=== PATIENT | male | born 1980 | race Caucasian/White ===

== ENCOUNTER 2020-03-28 05:32 | Emergency (ER) | payer OTHER, SELFPAY ==
--- NOTE | ~2020-03-28 | CT_ITS ---
EXAMINATION: CT abdomen pelvis wo con DATE: 03/28/2020 07:01 INDICATION: Right flank pain. History of nephrolithiasis. TECHNIQUE: Computed tomography (CT) of the abdomen and pelvis was performed without intravenous contr ast. Automated exposure control and iterative reconstruction technique were employed. Exam dose: 144 4.22 mGy-cm total exam DLP. COMPARISON: None. FINDINGS: The lung bases are clear of infiltrate or consolidation. Normal heart size. No pericardial or pleural effusion. The liver, gallbladder, bile ducts, spleen, pancreas and pancreatic duct are unremarkable. Normal morphology of the adrenal glands. There are multiple bilateral nonobstructing kidney stones. There is approximately 4.5 cm lower pole l eft renal cyst. There is approximately 3.8 x 4.2 mm right ureterovesical junction calculus with associated mild right hydroureteronephrosis. No left ureteral calculus or hydroureteronephrosis. The urinary bladder and prostate gland are unremarkable. Normal caliber of the abdominal aorta. No intraperitoneal or retroperitoneal or pelvic mass lesion or adenopathy or ascites. Normal appendix. Mild colonic diverticulosis. No bowel obstruction, bowel wall thickening, pneumatosi s or intraperitoneal free air. Included skeletal structures are unremarkable. IMPRESSION: 3.8 x 4.2 mm right ureterovesical junction calculus with mild right hydroureteronephrosi s Bilateral nephrolithiasis 4.5 cm lower pole right renal cyst Minimal colonic diverticulosis; no CT evidence of diverticulitis Reviewed, dictated and finalized at [facility]. Reviewed, dictated and finalized at [facility]. IMPRESSION: 3.8 x 4.2 mm right ureterovesical junction calculus with mild righ t hydroureteronephrosis Bilateral nephrolithiasis 4.5 cm lower pole right renal cyst Minimal colonic diverticulosis; no CT evidence of diverticulitis
[2020-03-28 05:34] VITALS: BP 152/98; PULSE 73; RESP 14; TEMP 36.2; O2SAT 100
--- NOTE | 2020-03-28 05:44 | ED.MALEGU ---
HPI - Male Genitourinary General Chief complaint: Urogenital-Male Stated complaint: kidney stone Time Seen by Provider: 03/28/20 05:44 Source: patient Mode of arrival: ambulatory Limitations: no limitations History of Present Illness HPI Narrative: Patient is a 40-year-old male with a history of nephrolithiasis who presents for evaluation of right flank pain. Patient states he has had right flank pain over the past 5 days, has increased in nature and severity, become more constant. Patient reports radiation of the pain into the right lower abdomen. No associated fever, nausea or vomiting. He has had some associated hematuria and difficulty with urination. He denies any dysuria. Patient states his last kidney stone was over 2 years ago, he was able to pass this on his own, not currently following with any urologist. Related Data Allergies Allergy/AdvReac Type Severity Reaction Status Date / Time No Known Allergies Allergy Verified 03/28/20 05:37 Review of Systems Review of Systems: Narrative: CONSTITUTIONAL: Denies fever, chills ENT: Denies rhinorrhea, congestion CARDIOVASCULAR: Denies chest pain RESPIRATORY: Denies cough or dyspnea. GASTROINTESTINAL: Reports right lower quadrant abdominal pain, denies nausea or vomiting GENITOURINARY: Denies dysuria reports hematuria and hesitancy SKIN: Denies rash or itching. MUSCULOSKELETAL: Reports right flank pain NEUROLOGIC: Denies headache, numbness, or weakness. [facility] Past Medical History Medical History (Updated 03/28/20 @ 08:11 by Katerina Hernandez MD) Nephrolithiasis Social History Social History (Updated 03/28/20 @ 05:53 by Katerina Hernandez MD) Smoking status: Never smoker Alcohol intake: never Substance use: never Living arrangements: with family Gender identity (if verbalized by the patient): Male Exam Narrative: Exam Narrative: GENERAL: Awake, alert, conversant HEAD: Normocephalic, atraumatic. EYES: PERRLA and EOMI. ENT: Nares clear, no rhinorrhea or epistaxis. Mucous membranes moist. NECK: Supple. CHEST: No respiratory distress, breathing even and non labored HEART: Regular rate, sinus rhythm ABDOMEN:Non distended, mild right lower quadrant tenderness without guarding, rigidity, no rebound EXTREMITIES: Normal range of motion. No edema. SKIN: Warm, dry, no rash. NEURO:No focal deficits. Alert and oriented x3 Course Vital Signs Vital signs: Vital Signs Temperature 36.2 C L 03/28/20 05:34 Pulse Rate 73 03/28/20 05:34 Respiratory Rate 14 03/28/20 05:34 Blood Pressure 152/98 H 03/28/20 05:34 Pulse Oximetry 100 03/28/20 05:34 Temperature 36.2 C L 03/28/20 05:34 Pulse Rate 87 03/28/20 07:45 Respiratory Rate 14 03/28/20 05:34 Blood Pressure 132/91 H 03/28/20 07:38 Pulse Oximetry 97 03/28/20 07:45 MDM - Male Genitourinary MDM Narrative Medical decision making narrative: Patient presented for evaluation of right-sided flank pain that radiates into the right lower abdomen with a history of nephrolithiasis. Symptoms do seem consistent with renal colic. IV access obtained and labs are drawn. Patient was given IV fluids, antiemetic and pain medication. Laboratory results show no leukocytosis, no acute kidney injury. Patient with hematuria without urinary tract infection. CT scan confirms right-sided ureteral stone with mild hydronephrosis. Patient feeling improved at the time of reassessment. Tolerating oral intake, pain is much improved. Shared decision-making occurred between myself and patient, patient would like to trial outpatient management with pain medication and outpatient urology follow-up. Patient then discharged home with family in stable condition. Differential Diagnosis Differential diagnosis: Likely urinary tract infection and other (Renal colic, UTI) Lab Data Attestation: I reviewed the patient's lab results. Result diagrams: 03/28/20 06:11 03/28/20 06:53 Labs: Lab Re
[2020-03-28] MEDS: SODIUM CHLORIDE 0.9% IV 1,000 ML 999 ML IV CONT (06:10)
[2020-03-28] MEDS: ONDANSETRON INJ 4 MG/2 ML VIAL IV PUSH (06:10)
[2020-03-28] MEDS: MORPHINE SULFATE (*CRX) 4 MG/ML INJ IV PUSH (06:12)
[2020-03-28 06:36] LABS: Basophils Absolute Auto 0.1 K/mm3 (0.0-0.1); Basophils Percent Auto 1.1 % (0.2-1.2); Eosinophils Absolute Auto 0.1 K/mm3 (0-0.3); Eosinophils Percent Auto 1.8 % (0-4.4); Hematocrit 47.2 % (42.0-52.0); Hemoglobin 15.6 g/dL (14.0-18.0); Immature Granulocyte Absolute 0.02 K/mm3 (0.00-0.031); Immature Granulocyte Percent A 0.3 % (0-0.5); Lymphocytes Absolute Auto 1.84 K/mm3 (0.9-3.2); Lymphocytes Percent Auto 23.3 % (18.3-44.2); Mean Corpuscular HGB Conc 33.1 g/dl (32-36); Mean Corpuscular Hemoglobin 29.9 pg (26-34); Mean Corpuscular Volume 90.4 fl (80-100); Monocytes Absolute Auto 0.7 K/mm3 (0.1-0.6); Monocytes Percent Auto 8.2 % (2.6-8.5); Neutrophils Absolute Auto 5.2 K/mm3 (1.3-6.7); Neutrophils Percent Auto 65.3 % (45.5-73.1); Platelet Count Result 270 k/mm3 (150-375); Red Blood Count 5.22 M/mm3 (4.6-6.20); Red Cell Distribution Width 12.2 % (11.5-14.5); White Blood Count 7.9 K/mm3 (4.5-10.0)
[2020-03-28 07:15] LABS: Alanine Aminotransferase 23 U/L (4-50); Albumin Level 4.3 g/dL (3.5-5.1); Alkaline Phosphatase 64 U/L (38-126); Anion Gap 8 mmol/L (8-16); Aspartate Amino Transferase 35 U/L (17-59); Bilirubin,Total 0.4 mg/dL (0.2-1.3); Blood Urea Nitrogen 16 mg/dL (9-20); Calcium 9.1 mg/dL (8.4-10.2); Carbon Dioxide 28 mmol/L (22-30); Chloride 105 mmol/L (98-107); Estimated CRCL calculation 118 ml/min; Estimated Glomerular Filt Rate > 60; Glucose 112 mg/dL (75-110); Lipase 98 U/L (23-300); Potassium 4.6 mmol/L (3.4-5.0); Sodium 141 mmol/L (137-145)
[2020-03-28] MEDS: HYDROmorphone HCL INJ (*CRX) 1 MG/ML SYR 0.5 MG IV PUSH (07:35)
[2020-03-28 07:38] VITALS: BP 132/91; PULSE 74; O2SAT 96
[2020-03-28 07:41] VITALS: O2SAT 97
[2020-03-28 07:41] LABS: Add Urine Microscopic? YES; Appearance Urine Clear (Clear); Bilirubin Urine Negative (Negative); Blood Urine 3+ (Negative); Color Urine Straw (Yellow); Glucose Urine UA Negative (Negative); Ketones Urine Negative (Negative); Leukocyte Esterase Ur Negative LEU/UL (Negative); Mucus Urine Few /lpf; Nitrate Urine Negative (Negative); Protein Urine Negative (Negative); RBC Urine >75 /hpf (0-2); Specific Grav Ur 1.014 (1.001-1.035); Urobilinogen Urine Negative mg/dL (<2.0); WBC Urine 0-3 /hpf
[2020-03-28 07:45] VITALS: PULSE 87; O2SAT 97
[2020-03-28 08:37] VITALS: BP 134/89; PULSE 83; RESP 16; O2SAT 97
== END 2020-03-28 08:38 | disposition home or self-care (01) ==
PROVIDERS: Emergency Provider Emergency Medicine
DX: N20.0 Calculus of kidney (principal); Z87.442 Personal history of urinary calculi
CPT/HCPCS: 36415; 74176; 80053; 81001; 83690; 85025; 96361; 96374; 96375; 99284; J0131; J1170; J2270; J2405; J7030

== ENCOUNTER 2020-05-01 15:46 | Outpatient (CLI) | payer OTHER, SELFPAY ==
--- NOTE | ~2020-05-01 | XR_ITS ---
EXAMINATION: XR abdomen/kub 1V DATE: 05/01/2020 16:10 INDICATION: Nephrolithiasis TECHNIQUE: A supine view of the abdomen on 2 radiographs was obtained. COMPARISON: CT dated 03/28/2020 FINDINGS: At least 3 of the larger renal stones are visible in the left kidney and one at the lower pole of the right kidney are visible on the plain radiographs. Some of the smaller stones particularly on the ri ght are likely obscured by mottled pattern of stool and gas in the superimposed colon. 4 mm stone at the right ureterovesicular junction has shifted more laterally with increased distention of the bladd er. Multiple phleboliths in the pelvis. No other stones seen along the course of ureters. IMPRESSION: 1. Bilateral nephrolithiasis with unchanged 4 mm stone at the right ureterovesicular junction. Reviewed, dictated and finalized at [facility]. APPRAISER IMPRESSION: 1. Bilateral nephrolithiasis with unchanged 4 mm stone at the right ureterovesi cular junction.
== END 2020-05-01 15:47 | disposition home or self-care (01) ==
PROVIDERS: Visit Provider Urology
DX: N20.0 Calculus of kidney (principal)
CPT/HCPCS: 74018